=== PATIENT | female | born 1935 | race Asian ===

== ENCOUNTER 2016-12-08 03:21 | Emergency (ER) | payer OTHER, MEDICARE ==
[~2016-12-08] VITALS: Ht 157.5 cm; Wt 42.6 kg
[2016-12-08 03:32] VITALS: BP_SYST 141
--- NOTE | 2016-12-08 03:35 | NUR ---
Placed in room 02 . Placed on lunchroom monitor, blood pressure machine and pulse oximeter. To gown for exam. Side rails up. Report given to SILVANA Frye.
--- NOTE | 2016-12-08 03:40 | NUR ---
Patient AAOx4, states having complaint of dizziness for approximately 2 days prior to ER visit. Patient states having intermittent episodes of nausea and numb sensation to right arm for 2 days prior to ER visit. Equal strength bilateral handgrips present. Patient denies abdominal pain at this time. Patient denies any other complaints.
[2016-12-08] MEDS ORDERED: NACL 0.9% 1,000 ML IV ONE (03:50)
--- NOTE | 2016-12-08 03:50 | NUR ---
ER Dr. Matamoros at bedside examining patient.
[2016-12-08 04:57] LABS: BASOPHILS % (AUTO) 0.5 % (0.0-2.0); EOSINOPHILS % (AUTO) 0.1 % (0.0-4.0); HEMATOCRIT 33.6 % (36-48); HEMOGLOBIN 11.3 g/dL (12.0-16.0); LYMPHOCYTES # (AUTO) 0.6 K/uL (1.0-5.5); LYMPHOCYTES % (AUTO) 11.1 % (20.5-51.5); MEAN CORPUSCULAR HEMOGLOBIN 30 pg (27-31); MEAN CORPUSCULAR HGB CONC 34 % (32-36); MEAN CORPUSCULAR VOLUME 90 fL (79.0-98.0); MONOCYTES # (AUTO) 0.3 K/uL (0.0-1.0); MONOCYTES % (AUTO) 5.9 % (1.7-9.3); NEUTROPHILS # (AUTO) 4.8 K/uL (1.8-7.7); NEUTROPHILS % (AUTO) 82.4 % (40.0-70.0); PLATELET COUNT (AUTO) 271 K/uL (130-430); RED BLOOD CELL COUNT(AUTO) 3.74 MIL/uL (4.2-6.2); RED CELL DISTRIBUTION WIDTH 12.5 % (9.0-15.0); WHITE BLOOD COUNT (AUTO) 5.7 K/uL (4.8-10.8)
[2016-12-08 05:01] LABS: ANION GAP 6 (5-15); CALCIUM 8.9 mg/dL (8.4-11.0); CHLORIDE 92 mmol/L (98-107); CREATININE 0.71 mg/dL (0.55-1.30); GLUCOSE 125 mg/dL (70-99); POTASSIUM 3.8 mmol/L (3.5-5.1); SODIUM SERUM 128 mmol/L (136-145); UREA NITROGEN, BLOOD 13 mg/dL (8-21)
[2016-12-08 05:04] LABS: INR 0.9 (0.8-1.2)
[2016-12-08 05:07] LABS: ALANINE AMINOTRANSFERASE 17 U/L (12-78); ASPARTATE AMINOTRANSFERASE 31 U/L (10-37); TOTAL BILIRUBIN 0.4 mg/dL (0.0-1.0)
--- NOTE | 2016-12-08 05:35 | NUR ---
Patient stable, no signs of distress noted.
[2016-12-08 07:05] VITALS: BP_SYST 142
--- NOTE | 2016-12-08 07:05 | NUR ---
Patient given written and verbal discharge instructions and verbalizes understanding. ER MD discussed with patient the results and treatment provided. Patient in stable condition. ID arm band removed. IV catheter removed intact and dressing applied, no active bleeding. Patient educated on pain management and to follow up with PMD. Pain Scale 0/10. Opportunity for questions provided and answered.
== END 2016-12-08 07:05 | disposition home or self-care (01) ==
LOC: SED 03:21
DX: E87.1 Hypo-osmolality and hyponatremia (principal); R00.2 Palpitations; I10 Essential (primary) hypertension
CPT/HCPCS: 36415; 71010; 80053; 84484; 85025; 85379; 85610; 93005; 96360; 96361; 99285; J7030